=== PATIENT | female | born 1990 | race Caucasian/White ===

== ENCOUNTER 2021-10-14 14:15 | Outpatient (CLI) | payer OTHER, SELFPAY ==
[2021-10-16 21:06] LABS: Chlamydia By Nucleic Acid AMP Negative (Negative)
[2021-10-17 15:29] LABS: Gonococcus By Nucleic Acid AMP Negative (Negative)
[2021-10-18 11:10] LABS: HPV Reflexed? NOT INDICATED
== END 2021-10-14 23:59 | disposition short-term general hospital (02) ==
PROVIDERS: Visit Provider Obstetrics & Gynecology
DX: Z12.4 Encounter for screening for malignant neoplasm of cervix (principal); Z11.3 Encounter for screening for infections with a predominantly sexual mode of transmission
CPT/HCPCS: 87491; 87591; 88175; G0145